=== PATIENT | female | born 1970 | race Caucasian/White ===

== ENCOUNTER 2021-10-23 13:24 | Emergency (ER) | payer MEDICAID, SELFPAY ==
[2021-10-23 13:35] VITALS: BP 118/65; PULSE 88; RESP 16; TEMP 36.4; O2SAT 98
--- NOTE | 2021-10-23 13:55 | ED.GENADUL_ITS ---
Discharge Plan Disposition Patient Disposition: HOME Condition: Stable Discharge Details Clinical Impression: Lumbago, Abscess Primary Care Provider: None,None ED Provider: Darshana Salazar Home Meds and New Rx's Prescriptions: New cyclobenzaprine 10 mg tablet 10 mg PO TID PRNQty: 10 0RF gabapentin [Neurontin] 100 mg capsule 100 mg PO TID Qty: 21 0RF clindamycin HCl 300 mg capsule 300 mg PO Q8H 7 Days Qty: 21 0RF Continued albuterol sulfate 90 mcg/actuation HFA aerosol inhaler 2 puff inhalation Q4H PRN HAILE 750 mg See Rx Instructions .ROUTE .COMPLEX Rx Instructions: 750 mg q am 1500 q hs; calcipotriene [Dovonex] 0.005 % cream 1 applic topical BID Rx Instructions: rub in gently and completely valacyclovir 1 gram tablet 1,000 mg PO BID PRN lorazepam 1 mg tablet 1 mg PO DAILY PRN hydroxyzine HCl 25 mg tablet See Rx Instructions PO TID PRN Rx Instructions: 1-2 tabs PO three times a day PRN; Discharge Instructions Instructions: Low Back Strain (ED), Abscess (ED) Additional Instructions: Take antibiotic as prescribed Warm compresses Take the Neurontin 3 times a day as prescribed, see if this helps your discomfort Above. Written you for Flexeril, be cautious combining these medications as they can make you very tired Do not take Flexeril within 8 hours of taking Ativan Recommend following up with your doctor in 24 to 48 hours for reassessment Return immediately with fever, chills, or with any new or worsening complaints Use a walker with ambulation to get around her home until your back starts to feel improvement Evening-care management list for follow-up Medical Decision Making <SAILAJA San - Last Filed: 10/23/21 21:22> Patient is a 51-year-old female presenting today with multiple complaints. Her primary complaint seems to be associated with back pain and muscle spasms. States that this is progressively been worsening since having a lumbar puncture at [facility] 2 weeks ago. She reports that she had history of trauma dating back to August. When 2 weeks ago with a headache, CT was performed and based on patient's description she was found to have enlarged ventricles for which they did an LP both diagnostically and therapeutically. She states that since then she been having difficulty with back pain is worse with physical therapy. She was seen most recently by PT on and since then has been having the severe muscle spasms that have been limiting her ability to perform her activities of daily living. States that she is been using ibuprofen without relief. Has not had any fevers or chills. States that the pain has progressively been spreading out and more more region seem to be having spasm. She has not been incontinent of stool and has been having normal bowel movements. She describes feeling weak and associates this with the pain and spasms. Patient also reports that she has had increasing dysuria, increased frequency or urgency. At times, the urgency mixed with the muscle spasms have led to incontinence. Patient also has noted a lesion on her right lateral thigh. Was questioning if this may have been associated with a tick bite, no known tick exposure and did not remove one from her leg. On exam, patient. Appears very anxious and uncomfortable but not acutely ill. Very gentle touch of the skin causes patient to nearly collapsed secondary to pain over nearly the entirety of her back. No step-off or midline tenderness. No erythema, warmth around area where lumbar puncture would have been performed. She is moving all of her extremities well and equal bilaterally. 2+ distal pulses. No saddle paresthesias. Rectal tone is intact. Abdominal exam is benign and nontender. Lungs are clear, normal cardiac exam. She denies any chest pain or shortness of breath. Patient does have right-sided CVA tenderness as well as spasm along bilateral lumbar spine. We will hydrate the patient, give muscle relaxer and acetaminophen to help with discomfort and muscle spasms. Do not see evidence to suggest a [employer] infection. She has no rash or nuchal rigidity. This is likely associated with PT and excess strain/use of the muscles. Patient may also have UTI. She does have an abscess on wilda right thigh which will need drainage and abx. Will hydrate, give APAP and valium. Will also obtain renal colic CT and recons of lumbar spine. At the end of my shift, care transitioned to Darshana Salazar PA-C with labs and imaging pending. Care accepted in transition from Wanda Orourke PA-C at 1600 CT results reviewed with patient without acute abnormality Repeat lactate within normal limits Ambulatory trial was performed and patient is ambulating with antalgic although based gait No clinical evidence of cauda equina syndrome, discitis, or epidural abscess I did consider these pathologies Patient feels comfortable discharge home at time of document She is encouraged to follow-up with her neurologist at her scheduled appointmenton care management follow-up for close outpatient PCP reassessment She is given a prescription for trialing Neurontin and Flexeril She is instructed not to take Flexeril within 8 hours of taking her Ativan Return precautions discussed and patient expressed understanding Discharged home in stable condition with stable vitals, neurologically intact <SAILAJA Rodríguez - Last Filed: 10/23/21 21:17> Patient is a 51-year-old female presenting today with multiple complaints. Her primary complaint seems to be associated with back pain and muscle spasms. States that this is progressively been worsening since having a lumbar puncture at [facility] 2 weeks ago. She reports that she had history of trauma dating back to August. When 2 weeks ago with a headache, CT was performed and based on patient's description she was found to have enlarged ventricles for which they did an LP both diagnostically and therapeutically. She states that since then she been having difficulty with back pain is worse with physical therapy. She was seen most recently by PT on and since then has been having the severe muscle spasms that have been limiting her ability to perform her activities of daily living. States that she is been using ibuprofen without relief. Has not had any fevers or chills. States that the pain has progressively been spreading out and more more region seem to be having spasm. She has not been incontinent of stool and has been having normal bowel moveme nts. She describes feeling weak and associates this with the pain and spasms. Patient also reports that she has had increasing dysuria, increased frequency or urgency. At times, the urgency mixed with the muscle spasms have led to incontinence. Patient also has noted a lesion on her right lateral thigh. Was questioning if this may have been associated with a tick bite, no known tick exposure and did not remove one from her leg. On exam, patient. Appears very anxious and uncomfortable but not acutely ill. Very gentle touch of the skin causes patient to nearly collapsed secondary to pain over nearly the entirety of her back. No step-off or midline tenderness. No erythema, warmth around area where lumbar puncture would have been performed. She is moving all of her extremities well and equal bilaterally. 2+ distal pulses. No saddle paresthesias. Rectal tone is intact. Abdominal exam is benign and nontender. Lungs are clear, normal cardiac exam. She denies any chest pain or shortness of breath. Patient does have right-sided CVA tenderness as well as spasm along bilateral lumbar spine. We will hydrate the patient, give muscle relaxer and acetaminophen to help with discomfort and muscle spasms. Do not see evidence to suggest a [employer] infection. She has no rash or nuchal rigidity. This is likely associated with PT and excess strain/use of the muscles. Patient may also have UTI. She does have an abscess on wilda right thigh which will need drainage and abx. Will hydrate, give APAP and valium. Will also obtain renal colic CT and recons of lumbar spine. At the end of my shift, care transitioned to Darshana Salazar PA-C with labs and imaging pending. Care accepted in transition from Wanda Orourke PA-C at 1600 CT results reviewed with patient without acute abnormality Repeat lactate within normal limits Ambulatory trial was performed and patient is ambulating with antalgic although based gait No clinical evidence of cauda equina syndrome, discitis, or epidural abscess I did consider these pathologies Patient feels comfortable discharge home at time of document She is encouraged to follow-up with her neurologist at her scheduled appointmenton care management follow-up for close outpatient PCP reassessment She is given a prescription for trialing Neurontin and Flexeril She is instructed not to take Flexeril within 8 hours of taking her Ativan Return precautions discussed and patient expressed understanding Discharged home in stable condition with stable vitals, neurologically intact HPI <SAILAJA aSn Last Filed: 10/23/21 21:22> General Mode of arrival: ambulatory . Date/Time Provider Initiated Documentation: 10/23/21 13:55 . Limitations to Documentation: no limitations . Information obtained by: patient and RN notes reviewed . History of Present Illness 51 year old F presents to the emergency department with the chief complaint of back pain, muscle spasms, urinary frequency, dysurea, lesion on thigh, described as severe, with intensity rated at >10. Quality is described as stabbing and aching, and is localized to the back and lower extremity. Patient reports no radiation. Patient started experiencing this month(s) and it has been constant. Immobilization improves symptom(s), M ovement worsens symptoms . Patient notes rash (lateral thigh) and weakness (feels weak associated with severe pain on movement); denies chest pain, cough, diaphoresis, fever/chills, loss of appetite, nausea/vomiting and shortness of breath. Patient did receive the following treatments prior to arrival, NSAID Related Data Home Medications Medication Instructions Recorded Confirmed HAILE See Rx Instructions .Route .COMPLEX 08/03/21 albuterol sulfate 90 mcg/actuation 2 puff inhalation Q4H PRN 08/03/21 aerosol inhaler calcipotriene 0.005 % topical 1 applic topical BID 08/03/21 cream (Dovonex) hydroxyzine HCl 25 mg tablet See Rx Instructions PO TID PRN 08/03/21 lorazepam 1 mg tablet 1 mg PO DAILY PRN 08/03/21 valacyclovir 1 gram tablet 1,000 mg PO BID PRN 08/03/21 clindamycin HCl 300 mg capsule 300 mg PO Q8H 7 days #21 caps 10/23/21 cyclobenzaprine 10 mg tablet 10 mg PO TID PRN #10 tabs 10/23/21 gabapentin 100 mg capsule 100 mg PO TID #21 caps 10/23/21 (Neurontin) Previous Rx's Medication Instructions Recorded clindamycin HCl 300 mg capsule 300 mg PO Q8H 7 days #21 caps 10/23/21 cyclobenzaprine 10 mg tablet 10 mg PO TID PRN #10 tabs 10/23/21 gabapentin 100 mg capsule 100 mg PO TID #21 caps 10/23/21 (Neurontin) Allergies Allergy/AdvReac Type Severity Reaction Status Date / Time hydrocortisone Allergy anger/rage Verified 10/23/21 14:52 levofloxacin [From Levaquin] Allergy Nausea Verified 10/23/21 14:52 penicillin V Allergy Hives Verified 10/23/21 14:52 shellfish derived Allergy Hives Verified 10/23/21 14:52 General Stated Complaint: GenMedical NIMO: 3 Review of Systems <SAILAJA San - Last Filed: 10/23/21 21:22> Constitutional Constitutional: Reports as per HPI, Denies chills, Denies fever(s) and Denies headache(s) ENT Ears, Nose, Mouth, and Throat: Denies headache(s) Cardiovascular Cardiovascular: Denies chest pain, Denies dyspnea and Denies dyspnea on exertion Respiratory Respiratory: Denies cough, Denies dyspnea and Denies dyspnea on exertion Gastrointestinal Gastrointestinal: Denies abdominal pain, Denies change in bowel habits and Denies fecal incontinence Genitourinary Genitourinary: Reports as per HPI Musculoskeletal Musculoskeletal: Reports as per HPI, Reports back pain, Denies muscle weakness, Denies numbness, Denies radiating pain into limb, Reports stiffness and Denies tingling Integumentary/Breasts Skin/Breast: Reports as per HPI Neurologic Neurologic: Reports as per HPI, Denies headache(s), Denies localized weakness, Denies numbness, Denies radicular pain, Denies sensory deficit, Denies tingling and Denies paresthesias PFSH <SAILAJA San - Last Filed: 10/23/21 21:22> All Active Problems (Updated 10/23/21 @ 18:37 by SAILAJA Rodríguez) Lumbago (Acute) Abscess (Acute) Medical History (Updated 10/23/21 @ 18:37 by SAILAJA Rodríguez) Anxiety Fibromyalgia HSV infection Major depressive disorder with psychotic features PTSD (post-traumatic stress disorder) Stuttering TBI (traumatic brain injury) Tinnitus Social History Smoking/Tobacco Use Status: Former Tobacco Use Smoking risk assessment performed?: Yes Alcohol Intake: current Alcohol Intake frequency: a few times a month Drug use: Daily Substance use type: marijuana Do you feel safe at home: Yes Do you feel safe in your relationship?: Yes Exam <SAILAJA San - Last Filed: 10/23/21 21:22> Const General: cooperative, healthy appearing, uncomfortable, well developed, well groomed and anxious Nutritional Appearance: average body habitus and well nourished Orientation: alert and awake Eyes General: appearance normal, both eyes and all related structures Neck Neck: normal visual inspection, full ROM, no lymphadenopathy and no meningeal signs Resp Effort & Inspection: normal respiratory effort and able to speak in complete sentences Auscultation: clear to auscultation bilaterally, no rales, no rhonchi and no wheezes Cardio Rate: regular rate Rhythm: regular rhythm Heart Sounds: S1 normal and S2 normal GI Inspection: normal to inspection Palpation: soft, no guarding and nontender Rectal Exam - female: visual inspection normal and normal sphincter tone Back/Spine/Pelvis Back: CVA tenderness (bilateral, L>R), No ecchymosis and back tenderness Cervical Spine: normal cervical lordosis, cervical ROM normal, No cervical spinal tenderness, No step off deformity and No cervical ROM abnormal Thoracic/Lumbar Spine: thoracic and lumbar spine normal to inspection, No thoraco-lumbar ROM normal, No bend over test abnormal (patient frequently bends forward for relief), No mass, paraspinal tenderness, thoraco-lumbar ROM limited (extension, rotation), thoraco-lumbar spasm, No thoracic spinal tenderness and lumbar spinal tenderness Pelvis: no pain with anterior-posterior compression and no pain with lateral compression Skin General skin exam: no rashes or lesions noted Neuro General: patient alert and patient awake Cognition: normal cognition Speech: speech normal Gait: antalgic (hunched over d/t back pain) Motor: muscle tone normal throughout, strength 5/5 throughout, no movement abnormalities noted and no fasciculations Sensory Exam: no sensory deficits noted (no saddle paresthesias) Extrem General: full ROM, capillary refill normal, no joint enlargement, no pedal edema, no calf tenderness and other (2+ distal pulses) Upper/lower leg/hip images: 1. Area of tenderness. Patient has area of erythema, fluctuant, induration. No discharge or opening. Surrounding, fainter erythema. Central area has small black area consistent with bug bite or other small trauma Psych Appearance: grossly normal and well kempt Mental Status: mental status grossly normal Speech and Movement: speech and movement normal Course <SAILAJA San - Last Filed: 10/23/21 21:22> Vital Signs Vital signs: Vital Signs Temperature 36.4 C 10/23/21 13:35 Pulse 88 10/23/21 13:35 Respiratory Rate 16 10/23/21 13:35 Blood Pressure 118/65 10/23/21 13:35 Pulse Oximetry 98 10/23/21 13:35 Temperature 36.4 C 10/23/21 13:35 Temperature Source Oral 10/23/21 13:35 Pulse 88 10/23/21 13:35 Respiratory Rate 16 10/23/21 13:35 Blood Pressure 118/65 10/23/21 13:35 Blood Pressure Position Sitting 10/23/21 13:35 Pulse Oximetry 98 10/23/21 13:35 Oxygen Delivery Method Room Air 10/23/21 13:35 Oxygen Flow Rate 0 10/23/21 13:35 Pain Level 10 10/23/21 13:35 Sign Out <SAILAJA San - Last Filed: 10/23/21 21:22> Sign Out Data: Sign Out Comment: Care transitioned to Darshana Salazar PA-C. Labs and imaging pending. Concerned for possible UTI as well. She has abscess that will need draining right lateral thigh, surrounding cellulitis noted. Significant back pain with muscle spasm. She is recieving hydration. Has received IV valium, APAP. Patient took NSAID prior to arrival. Last updated by Wanda Branham PA at 10/23/21 16:24
--- NOTE | 2021-10-23 14:15 | DI.CT_ITS ---
Exam(s) CT RENAL COLIC WO EXAM: CT RENAL COLIC WO CLINICAL HISTORY: right flank pain. TECHNIQUE: Imaging Protocol: Axial computed tomography images with coronal and sagittal reformatted images were created and reviewed CONTRAST MATERIAL: Intravenous: none Oral: None COMPARISON: CT CT LUMBAR SPINE RECONS from 10/23/2021 FINDINGS: VISUALIZED LUNG BASES: Mild increased markings evident in the right middle lobe and lingular segment of the left lung as well as in the left lower lobe consistent with mild infiltrate at these levels. There are no pleural effusions.. ABDOMEN: There is no ascites. LIVER: There is a subcapsular hypodensity in the superior aspect of the liver measuring 1 cm wide by 0.9 cm AP by 0.6 cm craniocaudal. Has benign appearance, probably hemangioma or cyst. Another larger well- defined hypodensity is seen in the left hepatic lobe measuring 1.5 by 1.5 cm. GALLBLADDER/BILIARY: No obvious gallbladder pathology. CBD is not dilated. PANCREAS: Difficult to evaluate due to the lack of oral and IV contrast and the paucity of retroperit lucas fat here. There is a hypodensity in the pancreatic head measuring 7 by 11 millimeters. Possib ly just part of the pancreatic duct but other pathology cannot be excluded. No calcifications at thi s level nor elsewhere in the pancreatic parenchyma. SPLEEN: Spleen is not enlarged. No obvious intrasplenic lesions. ADRENALS: There are no significant adrenal masses. KIDNEYS:There are small bilateral renal calculi, nonobstructive, these measuring up to 3 millimeters. No obvious cysts nor solid renal masses. No hydronephrosis.. ABDOMINAL AORTA: Abdominal aorta is not enlarged. LYMPH NODES: There is no retroperitoneal nor paraaortic adenopathy. ABDOMINAL WALL: No evidence of significant anterior abdominal wall nor inguinal hernia. GI: There is no evidence of bowel obstruction, free air, nor abscess. PELVIS: LYMPH NODES: There is no intrapelvic nor inguinal adenopathy. GI: Appendix is difficult to locate is a separate structure but there is no obvious evidence of acute appendicitis.No evidence of sigmoid diverticulitis. URINARY BLADDER: Urinary bladder wall is diffusely thickened (6 millimeters), probably consistent wit h element of chronic cystitis. No calculi seen in the urinary bladder. REPRODUCTIVE: Unremarkable OSSEOUS: No significant osseous lesions. No fractures evident. IMPRESSION: 1. Mild infiltrate is noted in both lung bases. 2. Bilateral nonobstructive nephrolithiasis. There calculi in the kidneys bilaterally measuring up t o 3 millimeters. No hydronephrosis. No hydroureter. 3. The wall of the urinary bladder is uniformly thickened; probably an element of chronic cystitis. 4. 7 x 11 millimeter hypodensity in the pancreatic head which may just represent part of the duct. Pancreas is somewhat difficult to evaluate here due to the lack of IV and oral contrast plus the lack of retroperitoneal fat. Recommend further pancreatic imaging. 5. There are two separate liver findings which are difficult to evaluate without IV contrast but prob ably represent cysts. RADIATION DOSE DELIVERED: 521.08 mGy.cm Total DLP DATA REPOSITORY: All CT scans at this facility are submitted to the National Radiology Data Registry (NRDR) Dose Index Registry (DIR) with the [employer] ([employer]). RADIATION OPTIMIZATION: All CT scans at this facility use at least one of these dose optimization te chniques: automated exposure control; mA and/or kV adjustment per patient size (includes targeted exa ms where dose is matched to clinical indication); or iterative reconstruction.
--- NOTE | 2021-10-23 14:25 | DI.CT_ITS ---
Exam(s) CT LUMBAR SPINE RECONS EXAM: CT LUMBAR SPINE RECONS CLINICAL HISTORY: recons please. TECHNIQUE: Imaging Protocol: Axial computed tomography images with coronal and sagittal reformatted images were created and reviewed COMPARISON: CT CT RENAL COLIC WO from 10/23/2021 FINDINGS: Bones: There are no fractures, listhesis, nor pars defects. There are no lytic osseous lesions evide nt. Right facet joint at L4-5 level exhibits significant degenerative changes. Visualized SI joints unremarkable. No obvious prominent disc herniations. Mild multilevel spinal canal stenosis. IMPRESSION: 1. No fractures nor listhesis. 2. No osseous lesions. 3. Some facet joint arthropathy noted, most evident at the right facet joint at L4-5 level RADIATION DOSE DELIVERED: Total DLP DATA REPOSITORY: All CT scans at this facility are submitted to the National Radiology Data Registry (NRDR) Dose Index Registry (DIR) with the [employer] ([employer]). RADIATION OPTIMIZATION: All CT scans at this facility use at least one of these dose optimization te chniques: automated exposure control; mA and/or kV adjustment per patient size (includes targeted exa ms where dose is matched to clinical indication); or iterative reconstruction.
[2021-10-23] MEDS: Normal Saline 1,000 ML 1000 ML IV (14:35)
[2021-10-23 14:44] LABS: Abs Immature Grans 0.06 10^3/uL (0.0-0.06); Absolute Basophil Count 0.04 10^3/uL (0.0-0.2); Absolute Eosinophil Count 0.33 10^3/uL (0.0-0.7); Absolute Lymphocyte Count 1.77 10^3/uL (1.2-3.4); Absolute Monocyte Count 0.69 10^3/uL (0.1-0.8); Absolute Neutrophil Count 7.38 10^3/uL (1.2-6.7); Basophils % 0.4; Eosinophils % 3.2; HCT 35.5 % (36.0-46.0); HGB 11.7 g/dL (11.2-15.7); Immature Grans % 0.6; Lymphocytes % 17.2; MCH 30.9 pg (27.0-33.0); MCV 94 fL (80-95); MPV 8.6 fL (8.0-11.0); Monocytes % 6.7; Neutrophils % 71.9; Platelet Count 333 10^3/uL (130-400); RBC 3.79 10^6/uL (3.93-5.22); RDW 13.8 % (11.7-14.6); RDW-SD 47.4 fL; WBC 10.27 10^3/uL (4.4-10.8)
[2021-10-23] MEDS: diazePAM 10 MG/2 ML SYR 5 MG IVP (14:48)
[2021-10-23 14:59] LABS: ALT 15 U/L (14-59); AST 12 U/L (15-37); Albumin 3.3 g/dL (3.4-5.0); Alkaline Phosphatase 72 U/L (46-116); Anion Gap 9.8 mmol/L (3-11); BUN 11 mg/dL (7-18); Bilirubin, Total 0.3 mg/dL (0.2-1.0); CO2 27.2 mmol/L (21.0-32.0); CREATININE 1.1 mg/dL (0.55-1.02); Calcium 9.4 mg/dL (8.5-10.1); Chloride 103 mmol/L (98-107); Estimated GFR 52.36 (mL/min/1.73m2); Glucose 98 mg/dL (74-106); Potassium 3.5 mmol/L (3.5-5.1); Sodium 140 mmol/L (136-145); Total Protein 7.5 g/dL (6.4-8.2)
[2021-10-23] MEDS: ACETAMINOPHEN 1,000 MG/100 ML BTL 400 MG IVPB (15:04)
[2021-10-23 15:50] VITALS: BP 105/62; PULSE 67; RESP 14; TEMP 36.8; O2SAT 100
[2021-10-23 15:55] LABS: Bilirubin Negative (Negative); Blood Moderate (Negative); Clarity Clear (Clear); Glucose Negative (Negative); Ketones Negative (Negative); Leukocyte Esterase Negative (Negative); Nitrite Negative (Negative); Urobilinogen 0.2 EU/dL (Up TO 0.2)
[2021-10-23 16:03] LABS: Bacteria Negative HPF (Negative); C & S Indicated? Yes; Casts Negative LPF (Negative); Crystals Negative HPF (Negative); Epithelial Cells Few HPF (Negative); Mucus Negative (Negative)
--- NOTE | 2021-10-23 16:09 | DI.VRAD_ITS ---
PROCEDURE INFORMATION: Exam: CT Abdomen And Pelvis Without Contrast Exam date and time: 10/23/2021 2:57 PM Age: 51 years old Clinical indication: Other: RT flank pain TECHNIQUE: Imaging protocol: Computed tomography of the abdomen and pelvis without contrast. Radiation optimization: All CT scans at this facility use at least one of these dose optimization techniques: automated exposure control; mA and/or kV adjustment per patient size (includes targeted exams where dose is matched to clinical indication); or iterative reconstruction. COMPARISON: No relevant prior studies available. FINDINGS: Lungs: There are some nonspecific patchy/ground-glass airspace opacities noted in the left lower lobe. Minimal opacities are seen inferiorly in the middle lobe. There is no significant pleural effusion. Liver: The liver is prominent in size. The superior to inferior extent of the right lobe of the liver is approximately 20 cm. There is low-density structure noted the left lobe of the liver approximately 16 mm in diameter on image 195 which likely represents hepatic cyst. No other focal intrahepatic abnormality is identified. Gallbladder and bile ducts: No calcified gallstones are identified. No gallbladder wall thickening pericholecystic fluid or biliary ductal dilatation is identified. Pancreas: The pancreas is unremarkable Spleen: The spleen is unremarkable Adrenal glands: No discrete adrenal mass. Kidneys and ureters: There are tiny punctate nonobstructing renal calculi noted bilaterally. No definite ureteral calculi or significant hydronephrosis. Stomach and bowel: Evaluation of the bowel is limited in the absence of oral, IV contrast. There is no evidence of bowel obstruction. There is no mass or pneumatosis. There are no findings to suggest acute appendicitis Appendix: See Stomach and bowel finding. Intraperitoneal space: No free fluid focal collections or free intraperitoneal air is identified. Vasculature: Unremarkable. No abdominal aortic aneurysm. Lymph nodes: No significant adenopathy Urinary bladder: There is bladder wall thickening which is nonspecific but suspicious for cystitis. No bladder calculi identified Reproductive: No significant uterine or adnexal abnormality identified. The uterus is located to the right of midline. Bones/joints: There is no acute bony abnormality. CT of the lumbar spine is dictated separately. There is a nonspecific focus of sclerosis noted in the right ilium which may represent a bone island. Soft tissues: No significant subcutaneous abnormality IMPRESSION: 1. Tiny nonobstructing renal calculi. No definite ureteral calculi or significant hydronephrosis. 2. Focus of low attenuation right lobe of the liver likely hepatic cyst. 3. Bladder wall thickening. Findings are nonspecific but may represent cystitis. Clinical correlation recommended. 4. Nonspecific ground-glass opacities at the lung apices. Mild pneumonitis not excluded. PROCEDURE INFORMATION: Exam: CT Lumbar Spine Without Contrast Exam date and time: 10/23/2021 2:57 PM Age: 51 years old Clinical indication: Other: RT flank pain TECHNIQUE: Imaging protocol: Computed tomography images of the lumbar spine without contrast. COMPARISON: No relevant prior studies available. FINDINGS: Bones/joints: There is mild scoliosis convex to the left with the apex of the curvature at approximately L4-L5. Bony mineralization is within normal limits. There is no evidence of an acute fracture. There is no decrease of vertebral body height. There is no acute or destructive bony abnormality identified. Discs/Spinal canal/Neural foramina: There is mild disc space narrowing in the lumbar spine. There are mild bulges, spondylitic changes of the endplates and facet arthropathy. There is a possible small right paracentral protrusion at L5-S1. No other definite focal protrusion is identified. There is mild narrowing of the canal at the level of the disc spaces but no high-grade stenosis is identified. Degenerative changes also lead to foraminal narrowing. Foraminal narrowing appears most prominent on the left at L5-S1 and bilaterally at L4-L5. Soft tissues: For further evaluation of the soft tissues of the abdomen and pelvis please see the CT dictated separately. There are tiny nonobstructing renal calculi. Bladder wall thickening is noted. IMPRESSION: 1. Mild scoliosis, lumbar spondylosis, disc disease. No high-grade central spinal stenosis. Possible posterior protrusion at L5-S1. There is foraminal narrowing noted most prominent at L4-L5 and on the left at L5-S1. 2. If further evaluation of the intervertebral discs, canal, cord, foramina is indicated MR correlation recommended. . Dictated and Authenticated by: Colleen Downey MD. Ordering:SMITH Muñoz MD
[2021-10-23 17:06] LABS: C-Reactive Protein 3.62 mg/dL (0.0-0.3)
[2021-10-23 17:09] LABS: Lactate 1.2 mmol/L (0.6-1.4)
[2021-10-23] MEDS: HYDROmorphone 2 MG/ML VIAL 0.5 MG IVP (18:05)
[2021-10-23] MEDS: Ketorolac 15 MG/ML VIAL IVP (18:07)
[2021-10-23 18:11] VITALS: BP 111/58; PULSE 74; TEMP 37.1; O2SAT 100
--- NOTE | 2021-10-23 19:00 | NUR.NOTE ---
Referral to Care Management to establish pcp and possibly have visiting nurse. Patient lives in [place].Nursing Note:
[2021-10-23] MEDS: Clindamycin 150 MG CAP, 12 CAPS/BTL 450 MG PO (19:09)
[2021-10-25 08:06] LABS: HIV-1/2 Ag & Ab Screen Negative (Negative)
[2021-10-25 10:51] LABS: Lyme Ab w Rflx to Lyme Confirm Negative (Negative)
[2021-10-26 21:48] LABS: Anaplasma phagocytophilum Negative (Negative); B. miyamotoi PCR Negative (Negative); Babesia divergens/MO-1 Negative (Negative); Babesia duncani Negative (Negative); Babesia microti Negative (Negative); Ehrlichia chaffeensis Negative (Negative); Ehrlichia ewingii/canis Negative (Negative); Ehrlichia muris eauclairensis Negative (Negative)
--- NOTE | 2021-10-31 10:29 | CMACTNOTE_ITS ---
- If Service Date Differs Date of service: 10/31/21 Time of Service: 10:29 Care Management Activity Note Rosie is seen in the ED for lumbago and an abscess. At the request of ED provider, a referral is made to [facility] for new RN, PT, OT and [facility] services.
--- NOTE | 2021-10-31 16:09 | NUR.NOTE ---
Nursing Note: patient called asking about getting refills for prescriptions that were given to her from our dept. I told her that there were no refills on the prescriptions, and that we recommend the patient to go to their PCP or if they dont have one, can go to an ED for further care. Natalya Rendon
== END 2021-10-23 19:01 | disposition home or self-care (01) ==
PROVIDERS: Physician Assistant; Emergency Provider Physician Assistant; PCP Family Medicine
DX: M54.50 Low back pain, unspecified (principal); L02.415 Cutaneous abscess of right lower limb; R35.0 Frequency of micturition; R39.15 Urgency of urination
CPT/HCPCS: 36415; 80053; 87389; 87798; 96361; 96374; 96375; 99285; 74176; 81003; 81015; 83605; 85025; 86140; 86618; 87086; 99284; J0131; J1885; J3360

== ENCOUNTER → 2021-12-15 01:52 | Outpatient (CLI) | payer MEDICAID, SELFPAY ==
--- NOTE | 2021-12-15 | DI.MRI_ITS ---
Exam(s) MR LUMBAR SPINE WO EXAM: MR LUMBAR SPINE WO CLINICAL HISTORY: BACK PAIN, M54.50. TECHNIQUE: Multiplanar multisequence MRI of the Lumbar spine was performed. COMPARISON: CT CT RENAL COLIC WO from 10/23/2021 FINDINGS: Bones: The last intervertebral disc space is designated the L5/S1 level for the numbering purpose of this examination. The vertebral body heights are well maintained. Alignment is satisfactory. At the L4-L5 disc level mixed hyper and hypointense signal is seen in the inferior L4 vertebral body in the superior L5 vertebral body on the T2 weighted images. Intermediate signal seen within the disc spac e. On the T1 weighted images these areas show decreased signal. These areas are hyperintense on the STIR images. On the coronal images there is a question of disruption of the cortices of the inferio r endplate of L4 and the superior endplate of L5. No paraspinal fluid collection is seen. Cord: The conus tip ends at the L1 level. It is of normal size and signal intensity. T12-L1: No disc herniations or bulges are present. No central spinal canal or neural foraminal stenos is. L1-2: No disc herniations or bulges are present. No central spinal canal or neural foraminal stenosis . L2-3: No disc herniations or bulges are present. No central spinal canal or neural foraminal stenosis . L3-4: No disc herniations or bulges are present. No central spinal canal or neural foraminal stenosis . L4-5: There is a mild diffuse disc bulge. Degenerative changes of the facets are present. No signif icant central spinal canal stenosis or left neural foraminal stenosis is present.There is mild narrow ing of the right neural foramen. L5-S1: There is a mild diffuse disc bulge. No central spinal canal or neural foraminal stenosis. Soft tissues: The visualized SI joints and sacrum are well maintained. IMPRESSION: 1. Heterogeneous signal seen at the L4-5 disc level as described above. While this may represent deg enerative change, discitis/osteomyelitis should be considered. A postcontrast MRI of the lumbar spin e is recommended for further evaluation. 2. Degenerative changes seen in the lumbar spine as described above. DATA REPOSITORY:
--- NOTE | 2021-12-15 10:40 | DI.CT_ITS ---
Exam(s) CT ABDOMEN PELVIS WO EXAM: CT ABDOMEN PELVIS WO CLINICAL HISTORY: PELVIC AND PERINEAL, R10.2. TECHNIQUE: Imaging Protocol: Axial computed tomography images with coronal and sagittal reformatted images were created and reviewed. COMPARISON: CT CT RENAL COLIC WO from 10/23/2021 FINDINGS: ABDOMEN: Lung Bases: Normal where visualized. Liver: Normal density. Stable hepatic cysts. Gallbladder and biliary tract: No radiodense calculus or biliary ductal dilation. Pancreas: Normal density, no abnormal calcifications or inflammatory process. Spleen: Normal. Kidneys: Normal size, contour and axis.Bilateral nephrolithiasis. No hydronephrosis. No masses seen . Adrenal glands: No mass is seen. Lymph nodes: Within normal limits. Abdominal Aorta: Abdominal portion non-dilated. PELVIS: Bladder:There is diffuse thickening of the wall of the urinary bladder. Bowel: No obstruction or bowel wall thickening. No evidence of appendicitis. There is a large amount of stool seen throughout the colon suggesting constipation. Peritoneal cavity: No ascites, collection or mesenteric inflammatory response. No free air. Reproductive organs: Unremarkable as visualized. Bones: At L4-L5, destruction of the inferior cortex of L4 and the superior cortex of L5 is noted. Th is was not present on the prior examination. The findings are suspicious for osteomyelitis/discitis. Soft Tissues: Within normal limits. IMPRESSION: 1. Destructive changes involving the inferior cortex of L4 and the superior cortex of L5. This is ne w compared to the examination from 10/23/2021. The findings are suspicious for osteomyelitis/discitis. 2. Bilateral nephrolithiasis without evidence of hydronephrosis. RADIATION DOSE DELIVERED: 698.94mGy.cm Total DLP DATA REPOSITORY: All CT scans at this facility are submitted to the National Radiology Data Registry (NRDR) Dose Index Registry (DIR) with the [employer] ([employer]). RADIATION OPTIMIZATION: All CT scans at this facility use at least one of these dose optimization te chniques: automated exposure control; mA and/or kV adjustment per patient size (includes targeted exa ms where dose is matched to clinical indication); or iterative reconstruction.
== END ==
PROVIDERS: PCP Family Medicine; Visit Provider Family Medicine
DX: M51.36 Other intervertebral disc degeneration, lumbar region (principal); N20.0 Calculus of kidney; M47.816 Spondylosis without myelopathy or radiculopathy, lumbar region
CPT/HCPCS: 72148; 74176

== ENCOUNTER 2022-03-06 08:09 | Outpatient (CLI) | payer MEDICAID, SELFPAY | END 2022-03-06 08:10 | disposition home or self-care (01) | LOC: DI.CARD 08:10 | PROVIDERS: PCP Family Medicine; Visit Provider Internal Medicine Cardiovascular Disease | CPT/HCPCS: 93010 ==